=== PATIENT | female | born 1980 | race Caucasian/White ===

== ENCOUNTER 2020-06-22 16:47 | Emergency (ER) | payer OTHER ==
--- NOTE | 2020-06-22 18:50 | CR ---
Chest: Portable view of the chest was obtained. Comparison: Prior chest x-ray of 12/31/19. Heart size and mediastinum are within normal limits for portable technique. Lungs are clear with no acute parenchymal change. Bony structure show nothing acute. Impression: 1. Nothing acute is seen on portable chest x-ray. Diagnostic code #1
[2020-06-22] MEDS ORDERED: Cephalexin 500 MG Cap PO ONE (19:10)
--- NOTE | 2020-06-22 19:17 | EDM.PDOC ---
ED HPI GENERAL MEDICAL PROBLEM - General Chief Complaint: Fever Stated Complaint: ON AND OFF FEVER & BODY ACHES Time Seen by Provider: 06/22/20 17:39 Source of Information: Reports: Patient, RN Notes Reviewed - History of Present Illness INITIAL COMMENTS - FREE TEXT/NARRATIVE: 40 yr old female that has had fever, chills off and on for the past 3 days. She has also had myalgias. No cough, sore throat, abd pain or bladder sx. She did take advil a couple of hrs FIRST BEATER with no fever on arrival to ED. She has fever in the 101 to 103 range frequently the last 3 days. She did get her first covid shot 10 days ago or about 7 days prior to onset of sx. She also had bilat breast reduction surgery 4 to 5 weeks ago. There has been some incisional discomfort, some redness from wearing support bras but no drainage at any time. - Related Data Allergies Allergy/AdvReac Type Severity Reaction Status Date / Time milk AdvReac Severe Stomach Verified 06/22/20 17:07 Upset Seasonal Allergies Allergy Severe Sneezing Uncoded 06/22/20 17:07 Home Meds: Home Meds Escitalopram Oxalate [Lexapro] 20 mg PO DAILY 06/22/20 [History] cephALEXin [Cephalexin] 500 mg PO TID #20 capsule 06/22/20 [Rx] Past Medical History Endocrine/Metabolic History: Reports: Obesity/BMI 30+ - Past Surgical History HEENT Surgical History: Reports: Naso-Sinus Surgery, Oral Surgery Female Surgical History: Reports: Breast Reduction, Tubal Ligation Social & Family History - Tobacco Use Tobacco Use Status *Q: Never Tobacco User - Caffeine Use Caffeine Use: Reports: Coffee - Recreational Drug Use Recreational Drug Use: No ED ROS GENERAL - Review of Systems Review Of Systems: See Below Constitutional: Reports: Fever, Chills HEENT: Denies: Throat Pain Respiratory: Denies: Shortness of Breath, Cough Cardiovascular: Denies: Chest Pain GI/Abdominal: Reports: Nausea (mild, gone). Denies: Abdominal Pain, Diarrhea, Vomiting : Reports: No Symptoms Musculoskeletal: Reports: Other (generalized achiness) Skin: Reports: Erythema (There has been incisional erythema bilat breasts S/P reduction surgery 4 to 5 weeks ago) ED EXAM, GENERAL - Physical Exam Exam: See Below General Appearance: Alert, No Apparent Distress Nose: Normal Inspection Throat/Mouth: Normal Inspection Head: Atraumatic Neck: Supple Respiratory/Chest: No Respiratory Distress, Lungs Clear, Normal Breath Sounds. No: Rhonchi Cardiovascular: Tachycardia GI/Abdominal: Soft, Non-Tender Extremities: Normal Inspection Neurological: Alert, Oriented, No Motor/Sensory Deficits Skin Exam: Warm, Dry, No Rash, Other (There is some incisional erythema and tenderness inf. aspect of both breasts. No severe tenderness, no abcess pal pable, no visible abnormal swelling, no drainage) Course - Vital Signs Last Recorded V/S: Last Vital Signs Temp 96.6 F L 06/22/20 17:04 Pulse 111 H 06/22/20 17:04 Resp 16 06/22/20 17:04 BP 152/106 H 06/22/20 17:04 Pulse Ox 100 06/22/20 17:04 - Orders/Labs/Meds Orders: Active Orders 24 hr Category Date Time Status CORONAVIRUS COVID-19 PCR PHL Stat Lab 06/22/20 19:02 Ordered Labs: Laboratory Tests 06/22/20 06/22/20 06/22/20 Range/Units 17:55 18:09 18:09 WBC 5.87 (3.98-10.04) K/mm3 RBC 4.50 (3.98-5.22) M/mm3 Hgb 13.6 (11.2-15.7) gm/dl Hct 39.3 (34.1-44.9) % MCV 87.3 (79.4-94.8) fl MCH 30.2 (25.6-32.2) pg MCHC 34.6 (32.2-35.5) g/dl RDW Std Deviation 39.2 (36.4-46.3) fL Plt Count 315 D (182-369) K/mm3 MPV 8.8 L (9.4-12.3) fl Neut % (Auto) 53.9 (34.0-71.1) % Lymph % (Auto) 30.8 (19.3-51.7) % [place] % (Auto) 8.5 (4.7-12.5) % Eos % (Auto) 5.5 (0.7-5.8) Baso % (Auto) 1.0 (0.1-1.2) % Neut # (Auto) 3.16 (1.56-6.13) K/mm3 Lymph # (Auto) 1.81 (1.18-3.74) K/mm3 [place] # (Auto) 0.50 H (0.24-0.36) K/mm3 Eos # (Auto) 0.32 (0.04-0.36) K/mm3 Baso # (Auto) 0.06 (0.01-0.08) K/mm3 C-Reactive Protein 4.1 H* (<1.0) mg/dL Urine Color Yellow (Yellow) Urine Appearance Clear (Clear) Urine pH 6.5 (5.0-8.0) Ur Specific [place] 1.020 (1.005-1.030) Urine Protein Negative (Negative) Urine Glucose (UA) Negative (Negative) Urine Ketones Negative (Negative) Urine Occult Blood 1+ H (Negative) Urine Nitrite Negative (Negative) Urine Bilirubin Negative (Negative) Urine Urobilinogen 0.2 (0.2-1.0) Ur Leukocyte Esterase Negative (Negative) Urine RBC 0-5 (0-5) /hpf Urine WBC 0-5 (0-5) /hpf Ur Squamous Epith Cells 5-10 H (0-5) /hpf Urine Bacteria Few (FEW) /hpf Urine Mucus Few (FEW) /hpf Meds: Medications Discontinued Medications Generic Name Dose Route Start Last Admin Trade Name David PRN Reason Stop Dose Admin Cephalexin 500 mg 06/22/20 19:10 Keflex PO 06/22/20 19:11 ONETIME ONE - Re-Assessments/Exams Free Text/Narrative Re-Assessment/Exam: 06/22/20 19:24 WBC normal, CRP is 4, Ua and CXR nl. Will check covid screen to go to the state. Will start her on cephalexin for possible cellulitis. Departure - Departure Time of Disposition: 19:12 Disposition: Home, Self-Care 01 Condition: Fair Clinical Impression: Cellulitis Qualifiers: Site of cellulitis: unspecified site Qualified Code(s): L03.90 - Cellulitis, unspecified - Discharge Information Prescriptions: cephALEXin [Cephalexin] 500 mg PO TID #20 capsule Referrals: Julee Hunt MD [Primary Care Provider] - Forms: ED Department Discharge Additional Instructions: Etiology of your fever is not totally clear as discussed. Start cephalexin 500 mg 3 times daily for possible cellulitis or soft tissue infection. Prescription has been sent to [facility]. Covid screen has been collected. That will be sent to the state lab. You should get results in the next 1 to 2 days. Self quarantine until you do get results. If the covid screen does come back positive than you will need to quarantine for at 10 days from the onset of symptoms. Return to ED as needed if symptoms worsening in any way. Sepsis Event Note (ED) - Evaluation Sepsis Screening Result: No Definite Risk - Focused Exam Vital Signs: Vital Signs Temp Pulse Resp BP Pulse Ox 06/22/20 17:04 96.6 F L 111 H 16 152/106 H 100 - My Orders Last 24 Hours: My Active Orders 06/22/20 19:02 CORONAVIRUS COVID-19 PCR PHL Stat - Assessment/Plan Last 24 Hours: My Active Orders 06/22/20 19:02 CORONAVIRUS COVID-19 PCR PHL Stat
== END 2020-06-22 19:24 | disposition home or self-care (01) ==
LOC: JD.ED 16:47
DX: N61.0 Mastitis without abscess (principal); R11.0 Nausea; R00.0 Tachycardia, unspecified; E66.9 Obesity, unspecified; Z68.30 Body mass index [BMI] 30.0-30.9, adult; Z91.048 Other nonmedicinal substance allergy status; Z91.011 Allergy to milk products; Z20.822 Contact with and (suspected) exposure to COVID-19
CPT/HCPCS: 36415; 71045; 71045-26; 81001; 85025; 86140; 99283; 99283-25; U0002

== ENCOUNTER 2020-06-26 14:38 | Emergency (ER) | payer OTHER ==
[2020-06-26] MEDS ORDERED: Lactated Ringers 2,000 ML ONE (15:34)
[2020-06-26] MEDS ORDERED: Lactated Ringers 1,000 ML IV ONE ×2 (15:43→17:51)
--- NOTE | 2020-06-26 15:47 | EDM.PDOC ---
ED HPI GENERAL MEDICAL PROBLEM - General Chief Complaint: Fever Stated Complaint: FEVER X 7 DAYS Time Seen by Provider: 06/26/20 15:42 - History of Present Illness INITIAL COMMENTS - FREE TEXT/NARRATIVE: 40-year-old female presents the emergency room with weeklong history of fevers. Patient has been seen at the walk-in clinic twice and here in the emergency room on Monday for this. She has been tested multiple times for Covid this is been negative I am not aware of any influenza screens being done. She is using Tylenol and ibuprofen 400 mg 4 times a day as needed for fever but none of this seems to be working. Patient had a breast reduction done 6 weeks ago and has done fairly well with this when she was here on Monday they thought it looked a little red and started her on cephalexin. The patient feels achy when the fevers are at their worst. The fevers have been a little higher than 104. Patient denies a cough she is not having any burning or frequency with urination. She has a little bit of a headache when the fevers are at their worst but no significant headache no neck pain or difficulty moving her neck. Generalized Pain Score (Numeric/FACES): 4 - Related Data Allergies Allergy/AdvReac Type Severity Reaction Status Date / Time milk AdvReac Severe Stomach Verified 06/26/20 15:15 Upset Seasonal Allergies Allergy Severe Sneezing Uncoded 06/26/20 15:15 Home Meds: Home Meds Escitalopram Oxalate [Lexapro] 20 mg PO DAILY 06/22/20 [History] cephALEXin [Cephalexin] 500 mg PO TID #20 capsule 06/22/20 [Rx] Past Medical History Endocrine/Metabolic History: Reports: Obesity/BMI 30+ - Infectious Disease History Infectious Disease History: Reports: Chicken Pox - Past Surgical History HEENT Surgical History: Reports: Naso-Sinus Surgery, Oral Surgery Female Surgical History: Reports: Breast Reduction, Tubal Ligation Social & Family History - Family History Family Medical History: No Pertinent Family History - Tobacco Use Tobacco Use Status *Q: Never Tobacco User - Caffeine Use Caffeine Use: Reports: Coffee ED ROS GENERAL - Review of Systems Review Of Systems: See Below Constitutional: Reports: Fever, Chills HEENT: Reports: No Symptoms Respiratory: Reports: No Symptoms Endocrine: Reports: No Symptoms GI/Abdominal: Reports: No Symptoms : Reports: No Symptoms Musculoskeletal: Reports: Other (She is achy all over worse with fevers) Neurological: Reports: No Symptoms Psychiatric: Reports: No Symptoms Hematologic/Lymphatic: Reports: No Symptoms Immunologic: Reports: No Symptoms ED EXAM, GENERAL - Physical Exam Exam: See Below Exam Limited By: No Limitations General Appearance: Alert, No Apparent Distress Eye Exam: Bilateral Eye: Normal Inspection Ears: Normal External Exam, Normal Canal, Hearing Grossly Normal, Normal TMs Nose: Normal Inspection, Normal Mucosa, No Blood Throat/Mouth: Normal Inspection, Normal Lips, Normal Teeth, Normal Gums, Normal Oropharynx, Normal Voice, No Airway Compromise Head: Atraumatic, Normocephalic Neck: Normal Inspection, Supple, Non-Tender, Full Range of Motion. No: Limited Range of Motion, Lymphadenopathy (L), Tender Lateral, Tender Midline, Thyromegaly, Other Respiratory/Chest: No Respiratory Distress, Lungs Clear, Normal Breath Sounds Cardiovascular: Regular Rate, Rhythm, No Edema, No Murmur GI/Abdominal: Normal Bowel Sounds, Soft, Non-Tender Back Exam: Normal Inspection, Full Range of Motion. No: CVA Tenderness (L), CVA Tenderness (R) Extremities: Normal Inspection, No Pedal Edema Neurological: Alert, Oriented, Normal Cognition Psychiatric: Normal Affect, Normal Mood Skin Exam: Other (She has minimal redness at her incision sites from her bilateral breast reduction. On the left side is more prominent but it is not warm she has some stitch remnants coming through the skin in places but no drainage. These otherwise look normal.) Course - Vital Signs Last Recorded V/S: Last Vital Signs Temp 37.0 C 06/26/20 18:54 Pulse 93 06/26/20 18:54 Resp 20 06/26/20 18:54 BP 123/83 06/26/20 18:54 Pulse Ox 98 06/26/20 18:54 - Orders/Labs/Meds Orders: Active Orders 24 hr Category Date Time Status Chest 1V Frontal [CR] Stat Exams 06/26/20 18:01 Taken CULTURE BLOOD [BC] Stat Lab 06/26/20 16:02 Received CULTURE BLOOD [BC] Stat Lab 06/26/20 16:11 Received Blood Culture x2 Reflex Set [OM.PC] Stat Oth 06/26/20 15:43 Ordered Isolation [COMM] Routine Oth 06/26/20 15:44 Ordered Labs: Laboratory Tests 06/26/20 06/26/20 06/26/20 Range/Units 15:57 16:02 16:02 WBC 6.47 (3.98-10.04) K/mm3 RBC 4.36 (3.98-5.22) M/mm3 Hgb 13.3 (11.2-15.7) gm/dl Hct 37.9 (34.1-44.9) % MCV 86.9 (79.4-94.8) fl MCH 30.5 (25.6-32.2) pg MCHC 35.1 (32.2-35.5) g/dl RDW Std Deviation 38.8 (36.4-46.3) fL Plt Count 345 (182-369) K/mm3 MPV 8.8 L (9.4-12.3) fl Neutrophils % (Manual) 61 H (40-60) % Band Neutrophils % 4 (0-10) % Lymphocytes % (Manual) 23 (20-40) % Atypical Lymphs % 0 % Monocytes % (Manual) 12 H (2-10) % Eosinophils % (Manual) 0 L (0.7-5.8) % Basophils % (Manual) 0 L (0.1-1.2) Platelet Estimate Adequate Plt Morphology Comment See note RBC Morph Comment Normal Sodium 135 L (136-145) mEq/L Potassium 3.6 (3.5-5.1) mEq/L Chloride 97 L (98-107) mEq/L Carbon Dioxide 25 (21-32) mEq/L Anion Gap 16.6 H (5-15) BUN 5 L (7-18) mg/dL Creatinine 0.9 (0.55-1.02) mg/dL Est Cr Clr Drug Dosing 71.75 mL/min Estimated GFR (MDRD) > 60 (>60) mL/min BUN/Creatinine Ratio 5.6 L (14-18) Glucose 110 H (74-106) mg/dL Lactic Acid (0.4-2.0) mmol/L Calcium 8.6 (8.5-10.1) mg/dL Total Bilirubin 0.6 (0.2-1.0) mg/dL AST 71 H (15-37) U/L ALT 154 H (14-59) U/L Alkaline Phosphatase 135 H (46-116) U/L Total Protein 8.2 (6.4-8.2) g/dl Albumin 3.7 (3.4-5.0) g/dl Globulin 4.5 gm/dL Albumin/Globulin Ratio 0.8 L (1-2) Urine Color (Yellow) Urine Appearance (Clear) Urine pH (5.0-8.0) Ur Specific [place] (1.005-1.030) Urine Protein (Negative) Urine Glucose (UA) (Negative) Urine Ketones (Negative) Urine Occult Blood (Negative) Urine Nitrite (Negative) Urine Bilirubin (Negative) Urine Urobilinogen (0.2-1.0) Ur Leukocyte Esterase (Negative) Urine RBC (0-5) /hpf Urine WBC (0-5) /hpf Ur Squamous Epith Cells (0-5) /hpf Urine Bacteria (FEW) /hpf Urine Mucus (FEW) /hpf Urine HCG, Qual (NEGATIVE) Influenza Type A RNA Negative (NEGATIVE) Influenza Type B RNA Negative (NEGATIVE) SARS-CoV-2 RNA (SUNDAY) Negative (NEGATIVE) 06/26/20 06/26/20 06/26/20 Range/Units 16:02 16:34 16:34 WBC (3.98-10.04) K/mm3 RBC (3.98-5.22) M/mm3 Hgb (11.2-15.7) gm/dl Hct (34.1-44.9) % MCV (79.4-94.8) fl MCH (25.6-32.2) pg MCHC (32.2-35.5) g/dl RDW Std Deviation (36.4-46.3) fL Plt Count (182-369) K/mm3 MPV (9.4-12.3) fl Neutrophils % (Manual) (40-60) % Band Neutrophils % (0-10) % Lymphocytes % (Manual) (20-40) % Atypical Lymphs % % Monocytes % (Manual) (2-10) % Eosinophils % (Manual) (0.7-5.8) % Basophils % (Manual) (0.1-1.2) Platelet Estimate Plt Morphology Comment RBC Morph Comment Sodium (136-145) mEq/L Potassium (3.5-5.1) mEq/L Chloride (98-107) mEq/L Carbon Dioxide (21-32) mEq/L Anion Gap (5-15) BUN (7-18) mg/dL Creatinine (0.55-1.02) mg/dL Est Cr Clr Drug Dosing mL/min Estimated GFR (MDRD) (>60) mL/min BUN/Creatinine Ratio (14-18) Glucose (74-106) mg/dL Lactic Acid 1.3 (0.4-2.0) mmol/L Calcium (8.5-10.1) mg/dL Total Bilirubin (0.2-1.0) mg/dL AST (15-37) U/L ALT (14-59) U/L Alkaline Phosphatase (46-116) U/L Total Protein (6.4-8.2) g/dl Albumin (3.4-5.0) g/dl Globulin gm/dL Albumin/Globulin Ratio (1-2) Urine Color Yellow (Yellow) Urine Appearance Clear (Clear) Urine pH 7.0 (5.0-8.0) Ur Specific [place] 1.015 (1.005-1.030) Urine Protein Negative (Negative) Urine Glucose (UA) Negative (Negative) Urine Ketones Negative (Negative) Urine Occult Blood Trace-lysed H (Negative) Urine Nitrite Negative (Negative) Urine Bilirubin Negative (Negative) Urine Urobilinogen 0.2 (0.2-1.0) Ur Leukocyte Esterase Negative (Negative) Urine RBC 0-5 (0-5) /hpf Urine WBC 0-5 (0-5) /hpf Ur Squamous Epith Cells 0-5 (0-5) /hpf Urine Bacteria Few (FEW) /hpf Urine Mucus Not seen (FEW) /hpf Urine HCG, Qual Negative (NEGATIVE) Influenza Type A RNA (NEGATIVE) Influenza Type B RNA (NEGATIVE) SARS-CoV-2 RNA (SUNDAY) (NEGATIVE) Meds: Medications Discontinued Medications Generic Name Dose Route Start Last Admin Trade Name Freq PRN Reason Stop Dose Admin Acetaminophen 975 mg 06/26/20 16:08 06/26/20 16:25 Tylenol PO 06/26/20 16:09 975 mg NOW ONE Administration Lactated Ringer's Confirm 06/26/20 15:34 06/26/20 16:02 Ringers, Lactated Administered 06/26/20 15:35 Not Given Dose 2,000 mls @ as directed .ROUTE .STK-MED ONE Lactated Ringer's 1,000 mls @ 999 mls/hr 06/26/20 15:43 06/26/20 16:01 Ringers, Lactated IV 06/26/20 16:43 999 mls/hr .BOLUS ONE Administration Lactated Ringer's 1,000 mls @ 999 mls/hr 06/26/20 17:51 06/26/20 17:53 Ringers, Lactated IV 06/26/20 18:51 999 mls/hr .BOLUS ONE Administration Ibuprofen 600 mg 06/26/20 16:09 06/26/20 16:24 Motrin PO 06/26/20 16:10 600 mg ONETIME ONE Administration - Re-Assessments/Exams Free Text/Narrative Re-Assessment/Exam: 06/26/20 19:35 Are not suggestive of much she is got some transaminase elevation which is probably the result of a viral infection. Urine is not suggestive of infectious process. I did not do an LP on this patient but I did discuss the possibility of doing one with the patient. The patient understands there is a small risk of not doing the LP of missing and meningitis but she agrees with holding off at this point. Patient feels much better after getting her fever under control she was given a dose of Tylenol and Motrin here and will continue to do this at home. She agrees to return to the emergency room with any questions or worsening symptoms. Departure - Departure Time of Disposition: 19:37 Disposition: Home, Self-Care 01 Clinical Impression: Viral illness - Discharge Information Referrals: Julee Hunt MD [Primary Care Provider] - Forms: ED Department Discharge Additional Instructions: Return to the emergency room with any questions problems or worsening symptoms. Push lots of fluids. Your labs suggest that you are a little on the dry side which is to be expected with a week long history of fevers. Use the Tylenol and Motrin as needed for fever control and as well as the aches and pains we gave you 1000 mg of Tylenol and 600 mg of ibuprofen. If you did this 4 times daily this would be maximal dose with both medications. Sepsis Event Note (ED) - Evaluation Sepsis Screening Result: Possible Sepsis Risk - Focused Exam Vital Signs: Vital Signs Temp Temp Pulse Resp BP Pulse Ox 06/26/20 18:54 37.0 C 93 20 123/83 98 06/26/20 17:38 36.5 C 105 H 20 123/70 97 06/26/20 17:24 36.5 C 06/26/20 16:25 38.5 C H 06/26/20 16:24 38.5 C H 06/26/20 15:16 40.1 C H 125 H 20 138/98 H 100 - My Orders Last 24 Hours: My Active Orders 06/26/20 15:43 Blood Culture x2 Reflex Set [OM.PC] Stat 06/26/20 15:44 Isolation [COMM] Routine 06/26/20 16:02 CULTURE BLOOD [BC] Stat 06/26/20 16:11 CULTURE BLOOD [BC] Stat 06/26/20 18:01 Chest 1V Frontal [CR] Stat - Assessment/Plan Last 24 Hours: My Active Orders 06/26/20 15:43 Blood Culture x2 Reflex Set [OM.PC] Stat 06/26/20 15:44 Isolation [COMM] Routine 06/26/20 16:02 CULTURE BLOOD [BC] Stat 06/26/20 16:11 CULTURE BLOOD [BC] Stat 06/26/20 18:01 Chest 1V Frontal [CR] Stat
[2020-06-26] MEDS ORDERED: Acetaminophen 325 MG Tab PO ONE (16:08)
[2020-06-26] MEDS ORDERED: Ibuprofen 600 MG Tab PO ONE (16:09)
[2020-06-26 16:58] LABS: CORONAVIRUS COVID-19 NAA NEGATIVE (NEGATIVE)
--- NOTE | 2020-06-27 10:21 | CR ---
Chest: Portable view of the chest was obtained. Comparison: Prior chest x-ray of 06/22/20. Heart size and mediastinum are normal. Lungs are clear with no acute parenchymal change. No acute bony abnormality is appreciated. Impression: 1. Nothing acute is seen on portable chest x-ray. Diagnostic code #1
== END 2020-06-26 20:00 | disposition home or self-care (01) ==
LOC: JD.ED 14:38
DX: B34.9 Viral infection, unspecified (principal); E66.9 Obesity, unspecified; Z68.31 Body mass index [BMI] 31.0-31.9, adult; Z91.011 Allergy to milk products; Z91.048 Other nonmedicinal substance allergy status; Z79.899 Other long term (current) drug therapy; Z20.822 Contact with and (suspected) exposure to COVID-19
CPT/HCPCS: 0240U; 36415; 71045; 80053; 81001; 81025; 83605; 85007; 85027; 87040; 99283; A9270; J7120

== ENCOUNTER 2025-02-07 15:56 | Emergency (ER) | payer OTHER ==
[2025-02-07] MEDS ORDERED: HEPATITIS B IMMUNE GLOBULIN 220 UNIT/ML IM ONE ×2 (19:04→19:45)
[2025-02-07] MEDS ORDERED: HEPATITIS B IMMUNE GLOBULIN 220 UNIT/ML ONE (20:00)
[2025-02-07] MEDS: HEPATITIS B IMMUNE GLOBULIN 220 UNIT/ML IM ONE (20:12)
== END 2025-02-07 20:44 | disposition home or self-care (01) ==
LOC: JD.ED 15:56
DX: Z23 Encounter for immunization (principal); E66.9 Obesity, unspecified; Z91.011 Allergy to milk products; Z88.8 Allergy status to other drugs, medicaments and biological substances; Z79.899 Other long term (current) drug therapy
CPT/HCPCS: 90371; 96372; 99281